=== PATIENT | male | born 1970 | race Two or more races ===

== ENCOUNTER 2019-04-11 12:42 | Emergency (ER) | payer SELFPAY ==
[~2019-04-11] VITALS: Ht 165.1 cm; Wt 72.6 kg
[2019-04-11 18:49] VITALS: BP 121/76
== END 2019-04-11 19:39 | disposition home or self-care (01) ==
LOC: ER 12:48
DX: S43.51XA Sprain of right acromioclavicular joint, initial encounter (principal); V18.2XXA Unspecified pedal cyclist injured in noncollision transport accident in nontraffic accident, initial encounter; Y93.89 Activity, other specified; Y99.8 Other external cause status; Y92.89 Other specified places as the place of occurrence of the external cause
CPT/HCPCS: 73030